=== PATIENT | male | born 1970 | race Hispanic/Latino ===

== ENCOUNTER 2019-02-22 13:31 | Inpatient (IN) | payer MEDICARE ==
[~2019-02-22 13:31] MED LIST: Iopamidol 370 76% 100 ML VIAL ONE
[2019-02-22 14:12] LABS: #Basophils 0.1 thou/uL (0.0-0.2); #Lymphocytes 1.9 thou/uL (1.20-3.40); #Monocytes 0.8 thou/uL (0.11-0.59); #Neutrophils 9.6 thou/uL (1.40-6.50); %Basophils 0.7 % (0.0-1.0); %Eosinophils 0.2 % (0.0-10.0); %Lymphocytes 15.5 % (21.0-51.0); %Monocytes 6.5 % (0.0-10.0); Hemoglobin 15.5 g/dL (14.0-18.0); Mean Corpuscular Hemoglobin 29.5 pg (27.0-31.0); Mean Corpuscular Volume 89.5 fL (78.0-98.0); Mean Platelet Volume 9.5 fL (7.4-10.4); Platelet Count 254 thou/uL (130-400); RBC Distribution Width 12.9 % (11.5-14.5); Red Blood Cell (RBC) Count 5.26 mill/uL (4.70-6.10); White Blood Cell (WBC) Count 12.5 thou/uL (4.8-10.8)
[2019-02-22 14:33] LABS: ALT (SGPT) 40 U/L (8-55); AST (SGOT) 25 U/L (5-34); Albumin 4.6 g/dL (3.5-5.0); Alkaline Phosphatase 52 U/L (40-110); Anion Gap 17 mmol/L (10-20); BUN (Urea Nitrogen) 17 mg/dL (8.9-20.6); Bilirubin, Total 0.8 mg/dL (0.2-1.2); Calc. Creatinine Clearance 0 mL/min (70-130); Calcium 9.7 mg/dL (7.8-10.44); Carbon Dioxide 24 mmol/L (22-29); Chloride 101 mmol/L (98-107); Estimated GFR-MDRD 89; Globulin 3.3 g/dL (2.4-3.5); Glucose 247 mg/dL (70-105); Potassium 4.4 mmol/L (3.5-5.1); Protein, Total 7.9 g/dL (6.0-8.3); Sodium 138 mmol/L (136-145)
[2019-02-22 14:48] LABS: Bacteria/HPF None Seen HPF (None Seen); Bilirubin Negative (Negative); Blood, Urine Negative (Negative); Clarity Clear (Clear); Glucose, Urine (Dipstick) Greater than 1000 mg/dL (Negative); Leukocyte Negative Leu/uL (Negative); Mucous/LPF 1+ LPF (<2+); Nitrite Negative (Negative); Protein, Urine (Dipstick) 50 mg/dL (Neg-Trace); RBC/HPF 0-3 HPF (0-3); Squamous Epithelial None Seen HPF (0-3); WBC/HPF 0-3 HPF (0-3)
--- NOTE | 2019-02-22 16:40 | CT ---
CT ABDOMEN AND PELVIS WITH CONTRAST: HISTORY: Abdominal pain. History of cholecystectomy. COMPARISON: Noncontrast CT study from 12/29/2015. FINDINGS: There are some atelectatic changes within the lung bases. Diffuse fatty change of the liver is noted. Some curvilinear calcification again noted along the ante rior margin of the liver, stable. There is a right lobe slightly oblong shaped liver lesion which ramírez ws what appears to be some peripheral enhancement. In retrospect it is present on the previous exam a nd not changed. It is incompletely characterized, possibly a hemangioma. It measures 2.8 x 5.5 cm. Th e spleen and pancreas regions are unremarkable. The gallbladder has been removed. The right and left adrenal glands and the right and left kidneys are normal in size. There is some mi ld dilatation of the more distal ileum with the mildly dilated small bowel loops extending into a lar ge right lateral abdominal wall hernia. There is some fecalization of some of the small bowel content s associated with the hernia itself and the exiting limb of the hernia which is the very distal ileum is nondilated. This would suggest there is some element of obstruction related to the hernia sac. Th is does appear to represent a change as compared to the 2016 study. There is no significant pelvic lymphadenopathy or mass. IMPRESSION: 1. Large right lateral wall abdominal hernia, containing small bowel, specifically the more distal il eum to the level of the terminal ileum. There is some mild dilatation of the distal ileum before it e nters this hernia loop. There is some fecalization of some of the small bowel contents within the her amparo itself and there is a definite transition to nondilated more distal ileum within the hernia itsel f and the terminal ileum exits the hernia sac as a completely nondilated structure. There is no herni ation of the colon. This would indicate there is some element of obstruction related to this hernia. 2. Diffuse fatty change of the liver. 3. Stable right lobe liver lesion, incompletely characterized, probably benign given lack of change s thad 2016. POS: [facility]
[2019-02-22] MEDS ORDERED: Morphine 4 MG/ML VIAL ONE (18:17)
[2019-02-22] MEDS ORDERED: Ondansetron PF 4 MG/2 ML Vial ONE (18:17)
[2019-02-22] MEDS ORDERED: Ondansetron ODT 4 MG TAB PO PRN (18:58)
[2019-02-22] MEDS ORDERED: Ondansetron PF 4 MG/2 ML Vial IVP PRN (18:58)
[2019-02-22] MEDS ORDERED: Dextrose 50% Abboject 50 ML SYRINGE SLOW IVP PRN (18:58)
[2019-02-22] MEDS ORDERED: Lorazepam 2 MG/ML VIAL SLOW IVP PRN (18:58)
[2019-02-22] MEDS ORDERED: hydrALAZINE 20 MG/ML VIAL SLOW IVP PRN (18:58)
[2019-02-22] MEDS ORDERED: Dextrose 5% in Water 1,000 ML IV PRN (18:58)
[2019-02-22] MEDS: Lactated Ringer's 1,000 ML IV SCH (21:29)
[2019-02-22] MEDS: Enoxaparin Sodium 40 MG/0.4 ML SYRINGE SC SCH (21:36)
[2019-02-22 22:01] VITALS: BMI 45.1
[2019-02-23] MEDS: Morphine 4 MG/ML VIAL SLOW IVP PRN ×3 (00:15→23:19)
[2019-02-23] MEDS: HumaLOG 300 UNITS/3 ML VIAL SC PRN ×3 (00:35→20:54)
--- NOTE | 2019-02-23 02:11 | HP ---
HISTORY OF PRESENT ILLNESS: Rashid West is a 48-year-old male, morbidly obese. In 2003, Dr. Leyva attempted laparoscopic cholecystectomy, but due to adhesions had to convert into an open procedure. Patient developed postoperative wound infection healing by secondary intention. Dr. Leyva saw him again in September 2003 at which time his wounds had healed. Patient presented in the emergency room in 2004 with incisional hernia at the medial aspect of his right subcostal incision. At that time, Dr. Leyva performed repair of ventral hernia with preperitoneal composite mesh. Patient states that he developed recurrence of his hernia, which he has had this for several years, now presents to the emergency room with abdominal pain and CAT scan revealed a large hernia sac mass with a smaller defect in his bladder, right subcostal incision. Patient has not had any nausea or vomiting. He has just had abdominal pain. This hernia mass contains lot of large amount of bowel including ileum. Abdominal exam is otherwise unremarkable. Patient is hemodynamically stable. ALLERGIES: NONE. SOCIAL HISTORY: Alcohol, none. Tobacco, none. MEDICATIONS: At home: 1. Tramadol. 2. Metformin 1000 b.i.d. 3. Actos 30 at bedtime. 4. Lisinopril 2.5 daily. 5. Levaquin daily. 6. Fenofibrate daily. 7. Voltaren 50 mg a day. 8. Atorvastatin 10 mg at p.m. 9. Aspirin 81 mg a day. PAST SURGICAL HISTORY: Open cholecystectomy with subsequent mesh repair in the past, prior to that he had orthopedic repair of his right femur. PAST MEDICAL HISTORY: Diabetes, hyperlipidemia. REVIEW OF SYSTEMS: Noncontributory. PHYSICAL EXAMINATION: VITAL SIGNS: Heart rate 87, blood pressure 130/72, respiratory rate 18. HEAD, EARS, EYES, NOSE, AND THROAT: Unremarkable. LUNGS: Clear to auscultation. CARDIAC: Regular rate and rhythm without murmur or gallop. ABDOMEN: Soft, obese, large hernia mass in right abdomen. It can be partially reduced. Patient is in no distress. EXTREMITIES: Chronic venous stasis changes. LABORATORY DATA: Basic metabolic profile normal. Glucose 247. Sodium 138, potassium 4.4, BUN 17, creatinine 0.9. Labs as noted above. White count 12, hemoglobin 15. ASSESSMENT AND PLAN: Large incisional hernia. This caused him pain. We will admit him to the hospital . Dr. Leyva will assume his care and repair his hernia tomorrow. Job ID: [id number]
[2019-02-23] MEDS: Lactated Ringer's 1,000 ML IV SCH ×3 (03:20→19:55)
[2019-02-23] MEDS: Sodium Chloride 0.9% (PF) 10 ML VIAL FS PRN (08:54)
[2019-02-23] MEDS: Pantoprazole 40 MG VIAL IVP SCH (08:54)
[2019-02-23] MEDS ORDERED: FLU VACC QS2019-20(6MOS UP)/PF 60 MCG/0.5 ML SYRINGE IM ONE (09:00)
[2019-02-23] MEDS ORDERED: CEFAZOLIN 2 GM in Premix Bag 1 BAG IVPB SCH (09:45)
[2019-02-23] MEDS ORDERED: Acetaminophen 1,000 MG in Premix Bag 1 BAG IVPB SCH (09:45)
[2019-02-23] MEDS ORDERED: Ketorolac Tromethamine 30 MG/ML VIAL IVP SCH (09:45)
--- NOTE | 2019-02-23 09:51 | PRG ---
DATE OF SERVICE: 02/23/2019 SUBJECTIVE: Mr. West is a 48-year-old morbidly obese diabetic, hypertensive male. He was admitted to the hospital yesterday by Dr. Holley in my absence. The patient has a history of an open cholecystectomy in 2003, followed by an open ventral hernia repair to the medial aspect of his right upper quadrant incision. He returned to the emergency room yesterday complaining of abdominal pain without nausea or vomiting. CT scan revealed a large incisional hernia involving the lateral aspect of his right upper quadrant incision. There was a substantial volume of bowel protruding through this. He notes that he feels better at this time and still has had no nausea or vomiting. PHYSICAL EXAMINATION: VITAL SIGNS: Temperature is 97.8, pulse 78, and blood pressure 111/70. LUNGS: clear to auscultation. ABDOMEN: Morbidly obese with extensive protrusion to the right lateral side of his abdomen. His obesity is such that it is difficult to tell if I am reducing anything or not. LABORATORY DATA: There are no new labs. ASSESSMENT: The patient with a large ventral incisional hernia. He believes this has been present for about 5 years (his last hernia repair was 14 years ago). PLAN: Plan is to return him to the operating room for open repair of the ventral hernia to the lateral aspect of his right upper quadrant incision. The large volume of extra abdominal material and his morbid obesity all make this substantially more difficult. I have discussed the operation in detail with the patient, who understands and agrees to proceed with surgery. Job ID: [id number]
[2019-02-23] MEDS ORDERED: Bupivacaine HCl 0.25%/Epi 0.0005/PF 10 ML VIAL FS ONE (10:12)
[2019-02-23] MEDS ORDERED: Fentanyl 100 MCG/2 ML VIAL ONE ×4 (11:33→17:07)
[2019-02-23] MEDS ORDERED: Midazolam HCl 2 mg/2 ml Vial ONE (11:34)
[2019-02-23] MEDS ORDERED: Famotidine/PF 20 mg/2ml Vial ONE (13:09)
[2019-02-23] MEDS ORDERED: SUGAMMADEX SODIUM 500 MG/5 ML VIAL ONE (13:09)
[2019-02-23] MEDS ORDERED: Lidocaine 1% PF 5 ML VIAL ONE (15:35)
[2019-02-23] MEDS ORDERED: Ondansetron PF 4 MG/2 ML Vial ONE (15:35)
[2019-02-23] MEDS ORDERED: Metoclopramide HCl 10 MG/2 ML VIAL ONE (15:35)
[2019-02-23] MEDS ORDERED: Rocuronium Bromide 10 MG/ML (10ML VIAL) ONE (15:35)
[2019-02-23] MEDS ORDERED: PROPOFOL 200 MG/20 ML VIAL ONE (15:35)
[2019-02-23] MEDS ORDERED: Ketorolac Tromethamine 30 MG/ML VIAL ONE (15:35)
[2019-02-23] MEDS ORDERED: HYDROmorphone 2 MG/ML VIAL ONE (16:23)
[2019-02-23] MEDS ORDERED: Non-Formulary Medication 1 EACH PO PRN (16:43)
[2019-02-23] MEDS ORDERED: HYDROmorphone 2 MG/ML VIAL SLOW IVP PRN (16:43)
[2019-02-23] MEDS ORDERED: Promethazine HCl 25 MG/ML VIAL IM/IV PRN (16:43)
[2019-02-23] MEDS ORDERED: Ondansetron HCl/PF 4 MG/2 ML Vial IVP PRN (16:43)
[2019-02-23] MEDS: Ketorolac Tromethamine 30 MG/ML VIAL IVP SCH ×2 (19:49→23:19)
[2019-02-23] MEDS: Enoxaparin Sodium 40 MG/0.4 ML SYRINGE SC SCH (20:54)
--- NOTE | 2019-02-23 22:45 | OP ---
DATE OF PROCEDURE: 02/23/2019 PREOPERATIVE DIAGNOSIS: Large incarcerated recurrent ventral incisional hernia. POSTOPERATIVE DIAGNOSIS: Large incarcerated recurrent ventral incisional hernia. PROCEDURE PERFORMED: Open repair of a large recurrent ventral incisional hernia in right upper abdomen with mesh using a 10 x 15 cm Ventralight mesh patch. ANESTHESIA: General endotracheal. INDICATIONS: The patient is a 48-year-old morbidly obese diabetic male. In 2003, I performed an open cholecystectomy secondary to extensive intraabdominal adhesions. In 2004, he had a hernia at the medial aspect of this right upper quadrant incision and this was repaired using an open approach. He believes that about 5 years ago, he developed a recurrent hernia involving the lateral aspect of this wound. The CT scan reveals a relatively small amount to the defect, but a huge volume of abdominal contents herniated through this with what appeared to be some degree of obstruction with a significant change in the caliber of the small bowel within the hernia. He presented to the emergency room yesterday complaining of abdominal pain. This is presumed to be the source. He was taken to the operating room at this time for repair. DESCRIPTION OF PROCEDURE: Informed consent was obtained. The patient was taken to the operating room, where general endotracheal anesthesia was obtained with the patient in supine position. He was rolled somewhat to his left side with a wedge placed behind his right back and hips. His abdomen was prepped with ChloraPrep and draped in sterile fashion. An oblique incision was created separate from his previous right upper quadrant incision over the area of the dominant herniated material. Dissection was carried through skin and subcutaneous tissue. I quickly encountered the hernia sac and carefully dissected around the hernia sac circumferentially. The dissection was carried down to the hernia defect. I then opened the hernia sac. There was a moderate amount of clear fluid within the hernia sac. I began the process of excising the hernia sac. Most of the hernia sac was quickly removed. There were some areas toward the medial aspect of the defect that were fairly densely adherent to the small bowel. I meticulously dissected the bowel away from the hernia sac and the abdominal wall. There was a segment where there was an obvious transition zone and what appeared to probably be some degree of stricturing secondary to the adhesions. There did not appear to be a persistent reason for the stricture and I believe that by lysing the adhesions that I was treating the stricture. Since I planned to repair this hernia with mesh, I did not want to resect the bowel unless it was absolutely necessary and I therefore decided against this. I had to open the defect a little further both medially and laterally. With this, I was eventually able to reduce the herniated segment of small bowel intraabdominal. There was at least 2 feet of small bowel herniated through the defect with the proximal bowel dilated and the distal small bowel decompressed. In order to reduce the contents, I had to ensure that there were minimal intraabdominal adhesions. I performed this dissection bluntly to clear the anterior abdominal wall circumferentially. It was specifically clear in the medial direction. Once I opened the defect further, I was able to quickly reduce contents. With his morbid obesity, there was always a struggle keeping the contents reduced as it was constantly pressure pushing outwards. I examined the defect and found it to be about 8 x 9 cm. When I looked at closure of the defect, I found that there was absolute inability in closing this in a transverse fashion and instead found that it was able to be closed in a vertical fashion. I then measured the defect in a vertical orientation. It was about 9 cm in length. I therefore chose a 10 x 15 cm piece of Ventralight mesh. On the back table, I placed 12 interrupted sutures of 0 Ethibond circumferentially around the mesh. Carefully measuring the distances from the fascial edge to the planned placement of the suture, I pulled all of the stay sutures through the muscular wall using a GraNee needle so as to create a snug fit of the mesh on the posterior aspect of the fascia. When these sutures were tied, the mesh was snug across the defect. There was no significant gap in the mesh, through which bowel would be able to herniate. I then closed the fascia using a series of interrupted sutures of #1 Prolene placed in a [id number] fashion. The wound was then. Irrigated with a L of saline. There had been no enterotomy and no substantial bleeding during the operation. A #19 round fluted drain was brought out inferiorly and placed within the wound. It was secured externally with 3-0 nylon suture. The incision was then closed using a running suture of 3-0 Vicryl to approximate the deep layers of the fatty tissue and skin naina to approximate the skin edges. The skin incision was about 17 cm long. Dry gauze external dressing was placed. With the large size of the incarcerated material, the extensive adhesions, the patient's morbid obesity and the recurrent nature of this, this all made for a difficult lengthy operation. The operation took in excess of 3 hours to complete. An abdominal binder was placed and he was taken to the recovery room in stable condition. About 30 mL of Marcaine was infiltrated within the skin and muscle circumferentially prior to closing. Job ID: [id number]
[2019-02-24] MEDS: HumaLOG 300 UNITS/3 ML VIAL SC PRN ×4 (01:02→15:29)
[2019-02-24] MEDS ORDERED: Piperacillin/Tazobactam 4.5 GM in Sodium Chloride 0.9% 100 ML IVPB SCH (02:00)
[2019-02-24 04:45] LABS: Hemoglobin A1c 10.6 % (4.0-6.0)
[2019-02-24 04:57] LABS: Anion Gap 15 mmol/L (10-20); BUN (Urea Nitrogen) 37 mg/dL (8.9-20.6); Calc. Creatinine Clearance 141 mL/min (70-130); Calcium 8.1 mg/dL (7.8-10.44); Carbon Dioxide 22 mmol/L (22-29); Chloride 104 mmol/L (98-107); Estimated GFR-MDRD 66; Glucose 200 mg/dL (70-105); Potassium 4.3 mmol/L (3.5-5.1); Sodium 137 mmol/L (136-145)
[2019-02-24] MEDS: Ketorolac Tromethamine 30 MG/ML VIAL IVP SCH ×4 (05:14→23:36)
[2019-02-24] MEDS: Morphine 2 MG/ML SYRINGE SLOW IVP PRN (05:15)
[2019-02-24 05:21] LABS: Band 15 % (5-11); Hemoglobin 14.6 g/dL (14.0-18.0); Lymphocytes 49 % (21-51); MDiff Complete? YES; Mean Corpuscular HGB CONC 30.7 g/dL (32.0-36.0); Mean Corpuscular Hemoglobin 27.7 pg (27.0-31.0); Mean Corpuscular Volume 90.3 fL (78.0-98.0); Mean Platelet Volume 9.7 fL (7.4-10.4); Monocytes 7 % (0-10); Neutrophil 29 % (42-75); Platelet Count 181 thou/uL (130-400); Platelet Morphology Comment Appears Adequate; RBC Distribution Width 13.1 % (11.5-14.5); RBC Morphology Normal; Red Blood Cell (RBC) Count 5.29 mill/uL (4.70-6.10); White Blood Cell (WBC) Count 7.6 thou/uL (4.8-10.8)
[2019-02-24] MEDS: Lactated Ringer's 1,000 ML IV SCH ×3 (05:21→18:26)
--- NOTE | 2019-02-24 06:42 | PDOC.GSPN ---
Surgery Progress Note: Subj - Subjective Narrative: Mr. West is a 48 y/o M who is POD 1 from an open repair of a large incarcerated recurrent ventral incisional hernia in the right upper abdomen with mesh. Overnight he reported suprapubic discomfort/pressure that he attributed to the duggan catheter. The nurse removed the duggan and scanned the bladder, which revealed 45 mL of urine. He reports that upon removal of the catheter his discomfort resolved. Prior to removal of the duggan, he had 375 mL out and he has voided minimally on several occasions overnight. He reports flatus and 3 episodes of diarrhea overnight, but denies nausea and vomiting. His pain is mild at rest, but elevates to an 8 when he gets up to walk to the restroom or ambulate, which he states has been 5-6 times since surgery. He received two doses of morphine overnight, which he says has controlled the pain. His DENISE drain put out 120 mL of serosanguinous fluid overnight. The nurse was concerned that he did not have any antibiotics ordered and had the hospitalist order a one time dose of Zosyn overnight. He is currently NPO with ice chips only and is receiving LR at 125 mL/hr. He is ambulating with moderate abdominal discomfort and is using incentive spirometry. Surgery Progress Note: Obj - Vital signs Vital signs: Vital Signs - Most Recent Temp Pulse Resp BP Pulse Ox 99 F 113 H 16 101/69 94 L 02/24/19 04:00 02/24/19 04:00 02/24/19 04:00 02/24/19 04:00 02/24/19 05:28 - Physical Exam General: no distress, moderate pain, obese Cardiovascular: regular rate and rhythm, no murmur Respiratory: clear to auscultation, normal respiratory effort Abdomen: soft, positive bowel sounds (normal active bowel sounds), appropriately tender, other (very obese abdomen) Wound: dressing clean,dry,intact, drainage (DENISE drain in the right lower abdomen) Surgery Progress Note: Results - Labs Result Diagrams: 02/24/19 04:20 02/24/19 04:20 Lab results: Laboratory Results - last 24 hr 02/24/19 02/24/19 02/24/19 04:20 04:20 04:20 WBC 7.6 RBC 5.29 Hgb 14.6 Hct 47.8 MCV 90.3 MCH 27.7 MCHC 30.7 L RDW 13.1 Plt Count 181 MPV 9.7 Neutrophils % (Manual) 29 L Band Neuts % (Manual) 15 H Lymphocytes % (Manual) 49 Monocytes % (Manual) 7 Plt Morphology Comment Appears Adequate RBC Morph Comment Normal Sodium 137 Potassium 4.3 Chloride 104 Carbon Dioxide 22 Anion Gap 15 BUN 37 H Creatinine 1.17 Estimated GFR (MDRD) 66 Glucose 200 H POC Glucose Hemoglobin A1c 10.6 H Calcium 8.1 Surgery Progress Note: A/P - Problem (1) Status post repair of recurrent ventral hernia Current Visit: Yes Code(s): Z98.890 - OTHER SPECIFIED POSTPROCEDURAL STATES; Z87.19 - PERSONAL HISTORY OF OTHER DISEASES OF THE DIGESTIVE SYSTEM Status: Acute Assessment and Plan: Mr. West is a 48 y/o male who is POD 1 from open repair of a large incarcerated recurrent ventral incisional hernia of the right upper abdomen with mesh. He is currently recovering well. His labs are within normal limits. We will continue to monitor his urine output and continue hydration with LR at 125 mL/hr. Will advance his diet to clear liquids this morning and continue advancing slowly as tolerated by the patient. His HgbA1c is 10.6, while he is here we will control his sugars with sliding scale insulin and recommend that he follow up outpatient with his PCP to achieve glycemic control for adequate postoperative healing. Will continue to monitor DENISE drainage and remove when drainage is less than 30 mL/24 hr. Patient's BP has been on the lower end of normal, we will minimize opioid use to prevent hypotension.
--- NOTE | 2019-02-24 07:39 | PDOC.HOSPP ---
- Subjective Encounter Date: 02/23/19 Encounter Time: 18:00 Subjective: post op in pacu, awake, no sob - Objective Vital Signs & Weight: Vital Signs (12 hours) Temp Pulse Resp BP Pulse Ox 02/24/19 07:22 98.4 F 107 H 18 117/79 94 L 02/24/19 05:28 94 L 02/24/19 04:00 99 F 113 H 16 101/69 94 L 02/24/19 01:10 98.9 F 113 H 16 112/70 94 L 02/23/19 23:49 99 F 120 H 20 101/56 L 93 L 02/23/19 20:55 98.4 F 107 H 18 94/63 94 L 02/23/19 20:00 95 Weight Weight 287 lb 14.4 oz I&O: 02/23/19 02/24/19 02/25/19 06:59 06:59 06:59 Intake Total 2130 Output Total 545 Balance 1585 Result Diagrams: 02/24/19 04:20 02/24/19 04:20 Additional Labs: Accuchecks 02/24/19 02/24/19 02/23/19 05:26 00:04 21:30 POC Glucose 205 H 206 H 244 H 02/23/19 18:55 POC Glucose 275 H Hospitalist ROS - Medication Medications: Active Medications Generic Name Dose Route Start Last Admin Trade Name Freq PRN Reason Stop Dose Admin Enoxaparin Sodium 40 mg 02/22/19 21:00 02/23/19 20:54 Lovenox SC 40 mg 2100 EDEL Administration Lactated Ringer's 1,000 mls @ 125 mls/hr 02/22/19 19:00 02/24/19 05:21 Lactated Ringer's IV 1,000 mls .Q8H EDEL Administration Insulin Human Lispro 0 units 02/22/19 18:58 02/24/19 05:23 Humalog SC 4 unit .MODERATE SLIDING SC PRN Administration Moderate Correctional Scale Ketorolac Tromethamine 30 mg 02/23/19 18:00 02/24/19 05:14 Toradol IVP 02/28/19 18:01 30 mg Q6HR EDEL Administration Morphine Sulfate 2 mg 02/22/19 18:58 02/24/19 05:15 Morphine SLOW IVP 2 mg Q2H PRN Administration Mild Pain (1-3) Morphine Sulfate 4 mg 02/22/19 18:58 02/23/19 23:19 Morphine SLOW IVP 4 mg Q2H PRN Administration Moderate Pain (4-6) Pantoprazole Sodium 40 mg 02/23/19 09:00 02/23/19 08:54 Protonix IVP 40 mg DAILY EDEL Administration Sodium Chloride 10 ml 02/22/19 18:58 02/23/19 23:19 Flush - Normal Saline IVF 10 ml PRN PRN Administration Saline Flush Sodium Chloride 10 ml 02/22/19 19:06 02/23/19 08:54 Normal Saline Pf FS 10 ml PRN PRN Administration RECONSTITUTION - Exam General Appearance: awake alert Eye: PERRL, anicteric sclera ENT: no oropharyngeal lesions, dry oral mucosa Neck: supple, no JVD Heart: RRR, no murmur Respiratory: no wheezes, no rales Gastrointestinal: soft Gastrointestinal - other findings: dressing over surgical site, drain+ Extremities: no cyanosis, no edema Neurological: cranial nerve grossly intact, no focal deficits Hosp A/P (1) Incarcerated hernia Code(s): K46.0 - UNSP ABDOMINAL HERNIA WITH OBSTRUCTION, WITHOUT GANGRENE Status: Acute (2) DM type 2 (diabetes mellitus, type 2) Status: Chronic Qualifiers: Diabetes mellitus mcfp insulin use: without computer terminal operator use Diabetes mellitus complication status: without complication Qualified Code(s): E11.9 - Type 2 diabetes mellitus without complications (3) Dyslipidemia Code(s): E78.5 - HYPERLIPIDEMIA, UNSPECIFIED Status: Chronic (4) HTN (hypertension) Code(s): I10 - ESSENTIAL (PRIMARY) HYPERTENSION Status: Chronic Qualifiers: Hypertension type: essential hypertension Qualified Code(s): I10 - Essential (primary) hypertension (5) Obesity Code(s): E66.9 - OBESITY, UNSPECIFIED Status: Chronic Qualifiers: Obesity classification: adult class 3 (BMI >= 40) Body mass index: BMI 45.0 -49.9 - Plan post op recovering well in pacu will be npo, on lactated ringers humalog sliding scale, protonix, morphine, toradol prn labs in am will f/u BP is well controlled now.
[2019-02-24] MEDS: Sodium Chloride 0.9% (PF) 10 ML VIAL FS PRN (09:26)
[2019-02-24] MEDS: Pantoprazole 40 MG VIAL IVP SCH (09:26)
--- NOTE | 2019-02-24 09:36 | PDOC.HOSPP ---
- Subjective Subjective: Doing ok. Has some pain, but says it is not bad. Flatus and BM. - Objective Vital Signs & Weight: Vital Signs (12 hours) Temp Pulse Resp BP Pulse Ox 02/24/19 07:22 98.4 F 107 H 18 117/79 94 L 02/24/19 05:28 94 L 02/24/19 04:00 99 F 113 H 16 101/69 94 L 02/24/19 01:10 98.9 F 113 H 16 112/70 94 L 02/23/19 23:49 99 F 120 H 20 101/56 L 93 L Weight Weight 287 lb 14.4 oz I&O: 02/23/19 02/24/19 02/25/19 06:59 06:59 06:59 Intake Total 2130 Output Total 545 Balance 1585 Result Diagrams: 02/24/19 04:20 02/24/19 04:20 Additional Labs: Accuchecks 02/24/19 02/24/19 02/23/19 05:26 00:04 21:30 POC Glucose 205 H 206 H 244 H 02/23/19 18:55 POC Glucose 275 H Hospitalist ROS - Medication Medications: Active Medications Generic Name Dose Route Start Last Admin Trade Name Freq PRN Reason Stop Dose Admin Enoxaparin Sodium 40 mg 02/22/19 21:00 02/23/19 20:54 Lovenox SC 40 mg 2100 EDEL Administration Lactated Ringer's 1,000 mls @ 125 mls/hr 02/22/19 19:00 02/24/19 05:21 Lactated Ringer's IV 1,000 mls .Q8H EDEL Administration Insulin Human Lispro 0 units 02/22/19 18:58 02/24/19 05:23 Humalog SC 4 unit .MODERATE SLIDING SC PRN Administration Moderate Correctional Scale Ketorolac Tromethamine 30 mg 02/23/19 18:00 02/24/19 05:14 Toradol IVP 02/28/19 18:01 30 mg Q6HR EDEL Administration Morphine Sulfate 2 mg 02/22/19 18:58 02/24/19 05:15 Morphine SLOW IVP 2 mg Q2H PRN Administration Mild Pain (1-3) Morphine Sulfate 4 mg 02/22/19 18:58 02/23/19 23:19 Morphine SLOW IVP 4 mg Q2H PRN Administration Moderate Pain (4-6) Pantoprazole Sodium 40 mg 02/23/19 09:00 02/24/19 09:26 Protonix IVP 40 mg DAILY EDEL Administration Sodium Chloride 10 ml 02/22/19 18:58 02/23/19 23:19 Flush - Normal Saline IVF 10 ml PRN PRN Administration Saline Flush Sodium Chloride 10 ml 02/22/19 19:06 02/24/19 09:26 Normal Saline Pf FS 10 ml PRN PRN Administration RECONSTITUTION - Exam General Appearance: NAD, awake alert Heart: RRR, no murmur, no gallops, no rubs, normal peripheral pulses Respiratory: CTAB, no wheezes, no rales, no ronchi, normal chest expansion, no tachypnea, normal percussion Gastrointestinal: soft, non-distended, normal bowel sounds, tender to palpation Skin: normal turgor Neurological: no focal deficits Musculoskeletal: normal tone Psychiatric: normal affect, normal behavior, A&O x 3 Hosp A/P (1) Incarcerated hernia Code(s): K46.0 - UNSP ABDOMINAL HERNIA WITH OBSTRUCTION, WITHOUT GANGRENE Status: Acute (2) Status post repair of recurrent ventral hernia Code(s): Z98.890 - OTHER SPECIFIED POSTPROCEDURAL STATES; Z87.19 - PERSONAL HISTORY OF OTHER DISEASES OF THE DIGESTIVE SYSTEM Status: Acute (3) DM type 2 (diabetes mellitus, type 2) Status: Chronic Qualifiers: Diabetes mellitus termite control service representative insulin use: without senior care use Diabetes mellitus complication status: without complication Qualified Code(s): E11.9 - Type 2 diabetes mellitus without complications (4) Dyslipidemia Code(s): E78.5 - HYPERLIPIDEMIA, UNSPECIFIED Status: Chronic (5) HTN (hypertension) Code(s): I10 - ESSENTIAL (PRIMARY) HYPERTENSION Status: Chronic Qualifiers: Hypertension type: essential hypertension Qualified Code(s): I10 - Essential (primary) hypertension (6) Obesity Code(s): E66.9 - OBESITY, UNSPECIFIED Status: Chronic Qualifiers: Obesity classification: adult class 3 (BMI >= 40) Body mass index: BMI 45.0 -49.9 (7) Tachycardia Code(s): R00.0 - TACHYCARDIA, UNSPECIFIED Status: Acute - Plan Doing fairly well. Good bowel function. His blood sugars have not been well controlled prior to admission. He is aware of that. He is also aware that his A1c is not good. Prefer slightly better glucose control, but looks like it is coming down a little. If it does not continue to improve today, consider increasing the SSI. He should go back on po's as soon as he is reliably taking po's. Still tachycardic and labs suggest he is a little pre-renal. Getting LR at 125. has some 3rd spacing. May consider a NS bolus if he does not improve.
[2019-02-24] MEDS: Enoxaparin Sodium 40 MG/0.4 ML SYRINGE SC SCH (21:21)
[2019-02-25] MEDS: Morphine 2 MG/ML SYRINGE SLOW IVP PRN (00:14)
[2019-02-25] MEDS: Lactated Ringer's 1,000 ML IV SCH ×3 (01:23→17:14)
[2019-02-25] MEDS: Ketorolac Tromethamine 30 MG/ML VIAL IVP SCH ×4 (05:28→23:39)
[2019-02-25] MEDS: Pantoprazole 40 MG VIAL IVP SCH (09:19)
[2019-02-25] MEDS ORDERED: HYDROcodone/Acetaminophen 7.5/325 mg Tablet PO PRN ×2 (13:31)
--- NOTE | 2019-02-25 14:30 | PDOC.HOSPP ---
- Subjective Subjective: Doing very well. Starting po's today. Having bm's. No pain. - Objective Vital Signs & Weight: Vital Signs (12 hours) Temp Pulse Resp BP Pulse Ox 02/25/19 11:26 98.2 F 90 20 139/76 95 02/25/19 07:34 98.1 F 87 18 126/71 95 02/25/19 04:23 98.5 F 82 16 121/77 95 Weight Weight 287 lb 14.4 oz I&O: 02/24/19 02/25/19 02/26/19 06:59 06:59 06:59 Intake Total 2130 1375 1500 Output Total 545 90 200 Balance 1585 1285 1300 Result Diagrams: 02/24/19 04:20 02/24/19 04:20 Additional Labs: Accuchecks 02/25/19 02/25/19 02/25/19 11:29 05:14 00:10 POC Glucose 156 H 146 H 152 H 02/24/19 15:12 POC Glucose 182 H Hospitalist ROS - Medication Medications: Active Medications Generic Name Dose Route Start Last Admin Trade Name Freq PRN Reason Stop Dose Admin Enoxaparin Sodium 40 mg 02/22/19 21:00 02/24/19 21:21 Lovenox SC 40 mg 2100 EDEL Administration Lactated Ringer's 1,000 mls @ 125 mls/hr 02/22/19 19:00 02/25/19 09:19 Lactated Ringer's IV 1,000 mls .Q8H EDEL Administration Insulin Human Lispro 0 units 02/22/19 18:58 02/24/19 15:29 Humalog SC 2 unit .MODERATE SLIDING SC PRN Administration Moderate Correctional Scale Ketorolac Tromethamine 30 mg 02/23/19 18:00 02/25/19 12:23 Toradol IVP 02/28/19 18:01 30 mg Q6HR EDEL Administration Morphine Sulfate 2 mg 02/22/19 18:58 02/25/19 00:14 Morphine SLOW IVP 2 mg Q2H PRN Administration Mild Pain (1-3) Sodium Chloride 10 ml 02/22/19 18:58 02/23/19 23:19 Flush - Normal Saline IVF 10 ml PRN PRN Administration Saline Flush - Exam General Appearance: NAD, awake alert General - other findings: obese. Neck: supple, symmetric, no JVD, no thyromegaly, no lymphadenopathy, no carotid bruit Heart: RRR, no murmur, no gallops, no rubs, normal peripheral pulses Respiratory: CTAB, no wheezes, no rales, no ronchi, normal chest expansion, no tachypnea, normal percussion Gastrointestinal: soft, non-distended, normal bowel sounds, no palpable masses, no hepatomegaly, no splenomegaly, no bruit Extremities: no cyanosis, no clubbing, no edema Neurological: cranial nerve grossly intact, normal sensation to touch, no weakness, no focal deficits, no new deficit Musculoskeletal: normal tone, normal strength, no muscle wasting Psychiatric: normal affect, normal behavior, A&O x 3 Hosp A/P (1) Incarcerated hernia Code(s): K46.0 - UNSP ABDOMINAL HERNIA WITH OBSTRUCTION, WITHOUT GANGRENE Status: Acute (2) Status post repair of recurrent ventral hernia Code(s): Z98.890 - OTHER SPECIFIED POSTPROCEDURAL STATES; Z87.19 - PERSONAL HISTORY OF OTHER DISEASES OF THE DIGESTIVE SYSTEM Status: Acute (3) DM type 2 (diabetes mellitus, type 2) Status: Chronic Qualifiers: Diabetes mellitus intermediate accountant insulin use: without intermediate accountant use Diabetes mellitus complication status: without complication Qualified Code(s): E11.9 - Type 2 diabetes mellitus without complications (4) Dyslipidemia Code(s): E78.5 - HYPERLIPIDEMIA, UNSPECIFIED Status: Chronic (5) HTN (hypertension) Code(s): I10 - ESSENTIAL (PRIMARY) HYPERTENSION Status: Chronic Qualifiers: Hypertension type: essential hypertension Qualified Code(s): I10 - Essential (primary) hypertension (6) Obesity Code(s): E66.9 - OBESITY, UNSPECIFIED Status: Chronic Qualifiers: Obesity classification: adult class 3 (BMI >= 40) Body mass index: BMI 45.0 -49.9 (7) Tachycardia Code(s): R00.0 - TACHYCARDIA, UNSPECIFIED Status: Acute - Plan Blood sugars and blood pressure look good. No change in meds. Will watch as he initiates diet. He seems to have good insight to what he needs to do to get his weight down and BP and BG under control.
[2019-02-25] MEDS: HumaLOG 300 UNITS/3 ML VIAL SC PRN ×2 (17:23→22:20)
[2019-02-25] MEDS: Famotidine 20 MG TAB PO SCH (20:30)
[2019-02-25] MEDS: Enoxaparin Sodium 40 MG/0.4 ML SYRINGE SC SCH (20:30)
[2019-02-26 04:53] LABS: #Basophils 0.1 thou/uL (0.0-0.2); #Eosinphils 0.2 thou/uL (0.0-0.7); #Lymphocytes 2.2 thou/uL (1.20-3.40); #Monocytes 0.6 thou/uL (0.11-0.59); %Basophils 0.8 % (0.0-1.0); %Eosinophils 2.3 % (0.0-10.0); %Lymphocytes 27.9 % (21.0-51.0); %Monocytes 7.4 % (0.0-10.0); %Neutrophils 61.7 % (42.0-75.0); Hemoglobin 10.4 g/dL (14.0-18.0); Mean Corpuscular HGB CONC 32.8 g/dL (32.0-36.0); Mean Corpuscular Hemoglobin 29.5 pg (27.0-31.0); Mean Corpuscular Volume 89.9 fL (78.0-98.0); Platelet Count 205 thou/uL (130-400); RBC Distribution Width 12.3 % (11.5-14.5); Red Blood Cell (RBC) Count 3.54 mill/uL (4.70-6.10); White Blood Cell (WBC) Count 8.1 thou/uL (4.8-10.8)
[2019-02-26] MEDS: Lactated Ringer's 1,000 ML IV SCH ×2 (05:21→12:20)
[2019-02-26] MEDS: Ketorolac Tromethamine 30 MG/ML VIAL IVP SCH ×2 (05:22→12:21)
[2019-02-26] MEDS ORDERED: Lactated Ringer's 1,000 ML IV SCH (07:30)
[2019-02-26] MEDS: Famotidine 20 MG TAB PO SCH (08:16)
[2019-02-26] MEDS: HumaLOG 300 UNITS/3 ML VIAL SC PRN (12:21)
[2019-02-26 15:36] VITALS: BP 157/82; TEMP 97.6
== END 2019-02-26 16:30 | disposition home or self-care (01) | DRG 336 ==
LOC: ERS 13:31 → SURG A 21:04
PROVIDERS: ADMIT Specialist; ATTEND Specialist
PROC: 0WUF0JZ Supplement Abdominal Wall with Synthetic Substitute, Open Approach (ICD-10-PCS; principal; 2019-02-23)
PROC: 0DNW0ZZ Release Peritoneum, Open Approach (ICD-10-PCS; 2019-02-23)
PROC: 3E02340 Introduction of Influenza Vaccine into Muscle, Percutaneous Approach (ICD-10-PCS; 2019-02-23)
DX: K43.0 Incisional hernia with obstruction, without gangrene (principal); Z68.42 Body mass index [BMI] 45.0-49.9, adult; E66.01 Morbid (severe) obesity due to excess calories; K66.0 Peritoneal adhesions (postprocedural) (postinfection); E78.5 Hyperlipidemia, unspecified; E11.9 Type 2 diabetes mellitus without complications; I10 Essential (primary) hypertension; R00.0 Tachycardia, unspecified; Z90.49 Acquired absence of other specified parts of digestive tract; Z79.899 Other long term (current) drug therapy; Z79.82 Long term (current) use of aspirin; Z79.84 Long term (current) use of oral hypoglycemic drugs; Z23 Encounter for immunization
CPT/HCPCS: 36415; 36416; 74177; 80048; 80053; 81003; 81015; 83036; 83690; 85025; 90471; 90686; 96374; 96375; C9113; G0008; J0131; J0690; J1170; J1650; J1885; J2001; J2250; J2270; J2405; J2543; J2704; J2765; J3010; J3490; Q9967; S0028

== ENCOUNTER 2019-04-13 15:07 | Emergency (ER) | payer MEDICARE ==
[2019-04-13 15:57] LABS: #Monocytes 0.8 thou/uL (0.11-0.59); %Basophils 0.3 % (0.0-1.0); %Eosinophils 1.1 % (0.0-10.0); %Lymphocytes 15.7 % (21.0-51.0); %Monocytes 6.3 % (0.0-10.0); %Neutrophils 76.6 % (42.0-75.0); Hemoglobin 12.3 g/dL (14.0-18.0); Mean Corpuscular HGB CONC 31.9 g/dL (32.0-36.0); Mean Corpuscular Hemoglobin 27.3 pg (27.0-31.0); Mean Corpuscular Volume 85.7 fL (78.0-98.0); Mean Platelet Volume 8.5 fL (7.4-10.4); Platelet Count 348 thou/uL (130-400); RBC Distribution Width 12.9 % (11.5-14.5); Red Blood Cell (RBC) Count 4.49 mill/uL (4.70-6.10)
[2019-04-13 15:58] LABS: #Eosinphils 0.1 thou/uL (0.0-0.7)
[2019-04-13 16:18] LABS: ALT (SGPT) 12 U/L (8-55); AST (SGOT) 14 U/L (5-34); Albumin 4.1 g/dL (3.5-5.0); Alkaline Phosphatase 54 U/L (40-110); Anion Gap 15 mmol/L (10-20); BUN (Urea Nitrogen) 17 mg/dL (8.9-20.6); Bilirubin, Total 0.5 mg/dL (0.2-1.2); Calc. Creatinine Clearance 0 mL/min (70-130); Calcium 9.8 mg/dL (7.8-10.44); Carbon Dioxide 25 mmol/L (22-29); Chloride 99 mmol/L (98-107); Estimated GFR-MDRD 82; Globulin 3.8 g/dL (2.4-3.5); Glucose 313 mg/dL (70-105); Potassium 4.7 mmol/L (3.5-5.1); Protein, Total 7.9 g/dL (6.0-8.3); Sodium 134 mmol/L (136-145)
[2019-04-13] MEDS ORDERED: Cephalexin 250 MG CAP ONE (18:17)
[2019-04-13] MEDS ORDERED: Lidocaine 1% (PF) 30 ML VIAL ONE (18:17)
[2019-04-13] MEDS ORDERED: cefTRIAXone\\ROCEPHIN 1 GM VIAL ONE (18:17)
[2019-04-13 18:59] LABS: Bacteria/HPF None Seen HPF (None Seen); Bilirubin Negative (Negative); Blood, Urine Negative (Negative); Clarity Clear (Clear); Glucose, Urine (Dipstick) Greater than 1000 mg/dL (Negative); Leukocyte Negative Leu/uL (Negative); Nitrite Negative (Negative); Protein, Urine (Dipstick) 30 mg/dL (Neg-Trace); RBC/HPF 0-3 HPF (0-3); Squamous Epithelial None Seen HPF (0-3); WBC/HPF 0-3 HPF (0-3)
== END 2019-04-13 19:05 | disposition home or self-care (01) ==
LOC: ERS 15:07
DX: L03.311 Cellulitis of abdominal wall (principal); E11.9 Type 2 diabetes mellitus without complications; E78.5 Hyperlipidemia, unspecified; I10 Essential (primary) hypertension; Z79.82 Long term (current) use of aspirin; Z79.899 Other long term (current) drug therapy; Z79.84 Long term (current) use of oral hypoglycemic drugs; Z79.891 Long term (current) use of opiate analgesic
CPT/HCPCS: 36415; 80053; 81003; 81015; 85025; 96372; 99284; J0696; J2001

== ENCOUNTER 2019-04-22 10:41 | Emergency (ER) | payer MEDICARE, OTHER, SELFPAY ==
[~2019-04-22 10:41] MED LIST changes: -Iopamidol 370 76% 100 ML VIAL ONE; +Iopamidol 370 76% 50 ML VIAL FS ONE; +Iopamidol-370 76% 500 ML 1 ML ONE
[2019-04-22 11:19] LABS: #Basophils 0.1 thou/uL (0.0-0.2); #Eosinphils 0.1 thou/uL (0.0-0.7); #Lymphocytes 3.3 thou/uL (1.20-3.40); #Monocytes 0.4 thou/uL (0.11-0.59); #Neutrophils 5.5 thou/uL (1.40-6.50); %Basophils 0.6 % (0.0-1.0); %Eosinophils 1.6 % (0.0-10.0); %Lymphocytes 34.7 % (21.0-51.0); %Monocytes 4.7 % (0.0-10.0); %Neutrophils 58.4 % (42.0-75.0); Hemoglobin 11.5 g/dL (14.0-18.0); Mean Corpuscular HGB CONC 31.6 g/dL (32.0-36.0); Mean Corpuscular Hemoglobin 26.7 pg (27.0-31.0); Mean Corpuscular Volume 84.6 fL (78.0-98.0); Mean Platelet Volume 7.8 fL (7.4-10.4); Platelet Count 558 thou/uL (130-400); RBC Distribution Width 13.5 % (11.5-14.5); Red Blood Cell (RBC) Count 4.31 mill/uL (4.70-6.10); White Blood Cell (WBC) Count 9.4 thou/uL (4.8-10.8)
[2019-04-22 11:29] LABS: ALT (SGPT) 16 U/L (8-55); AST (SGOT) 22 U/L (5-34); Albumin 3.7 g/dL (3.5-5.0); Alkaline Phosphatase 48 U/L (40-110); Anion Gap 14 mmol/L (10-20); BUN (Urea Nitrogen) 19 mg/dL (8.9-20.6); Bilirubin, Total 0.2 mg/dL (0.2-1.2); Calc. Creatinine Clearance 0 mL/min (70-130); Calcium 9.5 mg/dL (7.8-10.44); Carbon Dioxide 26 mmol/L (22-29); Chloride 101 mmol/L (98-107); Estimated GFR-MDRD 79; Globulin 3.8 g/dL (2.4-3.5); Glucose 169 mg/dL (70-105); Potassium 4.7 mmol/L (3.5-5.1); Protein, Total 7.5 g/dL (6.0-8.3); Sodium 136 mmol/L (136-145)
--- NOTE | 2019-04-22 14:31 | CT ---
CT Abdomen Pelvis W Con: 04/22/2019 1:10 PM CLINICAL INFORMATION: Abdominal wall cellulitis and abscess. Hernia repair on 02/24/2019 COMPARISON: 02/22/2019 TECHNIQUE: Multiple contiguous axial images were obtained and a CT of the abdomen and pelvis with IV contrast. Oral contrast was administered. Coronal and sagittal reformats were performed. FINDINGS: Lower Chest: within normal limits. Abdomen: Liver: Diffuse fatty infiltration. Bile Ducts: Normal caliber. Gallbladder: Removed Pancreas: within normal limits. Spleen: within normal limits. Adrenals: within normal limits. Kidneys: within normal limits. Pelvis: Reproductive Organs: No pelvic masses. Ureters: within normal limits. Bladder: within normal limits. Peritoneum: No ascites or free air, no fluid collection. Bowel: Normal caliber. Mesentery and Retroperitoneum: No enlarged mesenteric or retroperitoneal lymph nodes. Vessels: Normal. Abdominal Wall: There is a fluid collection containing air in the right abdominal wall at the site of previous hernia repair. This measures 14.3 x 5.3 x 8.1 cm in size. This is only superficial and does not extend deep to the fascia. Bones: Within normal limits IMPRESSION: Wound infection/abscess
[2019-04-22] MEDS ORDERED: Lidocaine 1% w/Epinephrine 1:100K 20 ML VIAL ONE (14:51)
[2019-04-22] MEDS ORDERED: Cefepime 2 GM VIAL ONE (16:00)
--- NOTE | 2019-04-22 16:11 | HP ---
HISTORY OF PRESENT ILLNESS: Rashid West is a 48-year-old male patient, who has had undergone a cholecystectomy in the past, has been seen by Dr. Leyva in the past and more recently on February 23, 2019, underwent open repair of a large recurrent ventral incisional hernia in the right upper abdomen with mesh, 10 x 15 cm Ventralight patch. He had adhesiolysis of the small bowel, adherent to the hernia sac. The hernia sac was resected. Herniated bowel segments were reduced through the defect, reducing approximately 2 feet of small bowel length. The defect was appreciated to be 8 x 9 cm and it was able to be closed in a vertical fashion resulting in a 9 cm closure. A 10 x 15 cm segment of Ventralight mesh and using 0 Ethibond, suture was placed circumferentially and a GraNee needle, the mesh was placed intraabdominal to reinforce the closures. Fascia was closed with #1 Prolene sutures [id number]. The wound was irrigated and closed. The skin incision was 17 cm long, 3-hour operation was completed. The patient apparently saw Dr. Leyva in the office a few weeks ago and was doing well. He had a planned followup in May. He was seen in the emergency room 04/[address] Hoyt and there was some mild redness around the incision. He was treated with Keflex, which he has 6 pills left to complete. He reports today drainage from the wound. A CAT scan was obtained to evaluate this, revealing subcutaneous tissue abscess, 14 x 5 x 8 cm, not extending to the deep fascia. Dr. Trujillo evaluated this, asked me to see him. At the bedside, I was able to appreciate a small opening where he had some clear to purulent drainage. His white count was 9 and hemoglobin 11.5. He was afebrile. At the bedside, I drained this and cultured it and placed a Kerlix roll. ASSESSMENT AND PLAN: Abdominal wall abscess. There does not appear to be involvement of the mesh, but there is concern. I have advised him to complete his Keflex. I have given him 1 g of vancomycin, 2 g of cefepime in the emergency room. He was sent home with 10 days of Cipro and Bactrim DS p.o. that he is to complete along with completing his Keflex. We will await the cultures. He will see me in the office tomorrow morning at 0900 and we will change his dressings, make arrangements with Wound Care for a wound VAC. Then, follow up next week with culture results. We will follow this clinically. Job ID: [id number]
--- NOTE | 2019-04-23 11:41 | OP ---
DATE OF PROCEDURE: 04/22/2019 PREOPERATIVE DIAGNOSIS: Right subcostal abdominal wound abscess, status post closure of a complex incisional hernia in a morbidly obese patient with reinforcement with mesh intraabdominal. PROCEDURES PERFORMED: Incision and drainage of skin and subcutaneous abscess, large, at bedside. ANESTHESIA: 1% Xylocaine with epinephrine. DESCRIPTION OF PROCEDURE: With the patient at bedside, the patient had a pinpoint opening with purulent drainage. There was induration laterally. Local anesthetic was infiltrated in the skin and subcutaneous tissue, and a 10-blade was used to incise and drain this, 8 cm opening made. Purulent material, fibrinous material evacuated. This was irrigated with saline solution. A Kerlix roll, gauze dressing applied. The patient tolerated the procedure well. Culture submitted. Job ID: [id number]
== END 2019-04-22 17:15 | disposition home or self-care (01) ==
LOC: ERS 10:41
DX: L02.211 Cutaneous abscess of abdominal wall (principal); E11.9 Type 2 diabetes mellitus without complications; E78.5 Hyperlipidemia, unspecified; I10 Essential (primary) hypertension; Z79.899 Other long term (current) drug therapy
CPT/HCPCS: 36415; 74177; 80053; 85025; 87070; 87077; 87186; 87205; 96365; 96367; J0692; J3370; Q9967

== ENCOUNTER 2019-08-23 12:58 | Emergency (ER) | payer MEDICARE ==
[2019-08-23 13:29] LABS: Bilirubin Negative (Negative); Blood, Urine 3+ (Negative); Clarity Turbid (Clear); Glucose, Urine (Dipstick) Greater than 1000 mg/dL (Negative); Leukocyte 250 Leu/uL (Negative); Mucous/LPF 2+ LPF (<2+); Nitrite Negative (Negative); Protein, Urine (Dipstick) 50 mg/dL (Neg-Trace); RBC/HPF Greater than 50 HPF (0-3); Renal Epithelial 0-3 HPF (None Seen); Squamous Epithelial 0-3 HPF (0-3); Urobilinogen Normal mg/dL (Less than 2); WBC/HPF Greater than 50 HPF (0-3)
[2019-08-23 13:35] LABS: Bacteria/HPF 1+ HPF (None Seen)
[2019-08-23] MEDS ORDERED: Lidocaine 1% PF 5 ML VIAL ONE (14:42)
[2019-08-23] MEDS ORDERED: cefTRIAXone\\ROCEPHIN 1 GM VIAL ONE (14:42)
== END 2019-08-23 15:00 | disposition home or self-care (01) ==
LOC: ERS 12:58
DX: N39.0 Urinary tract infection, site not specified (principal); E11.9 Type 2 diabetes mellitus without complications; I10 Essential (primary) hypertension; E78.5 Hyperlipidemia, unspecified; Z79.891 Long term (current) use of opiate analgesic; Z79.84 Long term (current) use of oral hypoglycemic drugs; Z79.899 Other long term (current) drug therapy; Z79.82 Long term (current) use of aspirin
CPT/HCPCS: 81003; 81015; 87077; 87086; 87186; 96372; 99283; J0696; J2001

== ENCOUNTER 2021-01-06 15:32 | Emergency (ER) | payer MEDICARE ==
[2021-01-07 09:56] LABS: ALT (SGPT) 37 U/L (8-55); AST (SGOT) 35 U/L (5-34); Albumin 4.7 g/dL (3.5-5.0); Alkaline Phosphatase 49 U/L (40-110); Anion Gap 19 mmol/L (10-20); BUN (Urea Nitrogen) 24 mg/dL (8.4-25.7); Bilirubin, Total 0.4 mg/dL (0.2-1.2); Calc. Creatinine Clearance 0 mL/min (70-130); Calcium 10.3 mg/dL (7.8-10.44); Carbon Dioxide 23 mmol/L (22-29); Chloride 104 mmol/L (98-107); Globulin 3.1 g/dL (2.4-3.5); Glucose 115 mg/dL (70-105); Potassium 5.1 mmol/L (3.5-5.1); Protein, Total 7.8 g/dL (6.0-8.3); Sodium 141 mmol/L (136-145)
[2021-01-07 10:57] LABS: Hemoglobin 14.9 g/dL (14.0-18.0); Red Blood Cell (RBC) Count 5.06 mill/uL (4.70-6.10); White Blood Cell (WBC) Count 13.5 thou/uL (4.8-10.8)
[2021-01-07 10:58] LABS: Lymphocytes 26 % (21-51); MDiff Complete? YES; Manual Diff?? YES; Mean Corpuscular HGB CONC 32.3 g/dL (32.0-36.0); Mean Corpuscular Hemoglobin 29.4 pg (27.0-31.0); Mean Corpuscular Volume 90.9 fL (78.0-98.0); Mean Platelet Volume 10.3 fL (7.4-10.4); Neutrophil 69 % (42-75); Platelet Count 243 thou/uL (130-400); RBC Distribution Width 13.3 % (11.5-14.5)
[2021-01-07 10:59] LABS: Monocytes 5 % (0-10); Platelet Morphology Comment Appears Adequate; RBC Morphology Normal
== END 2021-01-07 02:33 | disposition left against medical advice (07) ==
LOC: ERS 15:32
DX: Z53.21 Procedure and treatment not carried out due to patient leaving prior to being seen by health care provider (principal)
CPT/HCPCS: 86850; 86900; 86901

== ENCOUNTER 2021-01-07 07:25 | Emergency (ER) | payer MEDICARE ==
[2021-01-07] MEDS ORDERED: Pantoprazole 40 MG VIAL ONE (08:22)
[2021-01-07] MEDS ORDERED: Ondansetron PF 4 MG/2 ML Vial ONE (08:22)
[2021-01-07] MEDS ORDERED: Morphine 4 MG/ML VIAL ONE (08:22)
[2021-01-07 08:47] LABS: #Basophils 0.1 thou/uL (0.0-0.2); #Lymphocytes 2.3 thou/uL (1.20-3.40); #Monocytes 0.7 thou/uL (0.11-0.59); #Neutrophils 8.6 thou/uL (1.40-6.50); %Basophils 0.7 % (0.0-1.0); %Eosinophils 0.4 % (0.0-10.0); %Lymphocytes 19.7 % (21.0-51.0); %Monocytes 5.5 % (0.0-10.0); %Neutrophils 73.7 % (42.0-75.0); Hemoglobin 14.9 g/dL (14.0-18.0); Mean Corpuscular HGB CONC 32.4 g/dL (32.0-36.0); Mean Corpuscular Hemoglobin 29.1 pg (27.0-31.0); Mean Corpuscular Volume 89.9 fL (78.0-98.0); Platelet Count 229 thou/uL (130-400); RBC Distribution Width 13.2 % (11.5-14.5); Red Blood Cell (RBC) Count 5.11 mill/uL (4.70-6.10); White Blood Cell (WBC) Count 11.7 thou/uL (4.8-10.8)
[2021-01-07 08:48] LABS: ALT (SGPT) 40 U/L (8-55); AST (SGOT) 39 U/L (5-34); Albumin 4.4 g/dL (3.5-5.0); Alkaline Phosphatase 43 U/L (40-110); Anion Gap 15 mmol/L (10-20); BUN (Urea Nitrogen) 20 mg/dL (8.4-25.7); Bilirubin, Total 0.7 mg/dL (0.2-1.2); Calc. Creatinine Clearance 0 mL/min (70-130); Calcium 9.6 mg/dL (7.8-10.44); Carbon Dioxide 23 mmol/L (22-29); Chloride 104 mmol/L (98-107); Globulin 2.9 g/dL (2.4-3.5); Glucose 203 mg/dL (70-105); Lipase 38 U/L (8-78); Potassium 4.4 mmol/L (3.5-5.1); Protein, Total 7.3 g/dL (6.0-8.3); Sodium 138 mmol/L (136-145)
[2021-01-07] MEDS ORDERED: Iopamidol-370 76% 500 ML 1 ML ONE (15:19)
== END 2021-01-07 11:40 | disposition home or self-care (01) ==
LOC: ERS 07:25
DX: K92.1 Melena (principal); Z79.899 Other long term (current) drug therapy; Z79.82 Long term (current) use of aspirin; Z79.84 Long term (current) use of oral hypoglycemic drugs; E11.9 Type 2 diabetes mellitus without complications; E78.00 Pure hypercholesterolemia, unspecified
CPT/HCPCS: 36415; 74177; 80053; 82274; 83690; 85025; 96374; 96375; C9113; J2270; J2405; Q9967

== ENCOUNTER 2021-06-03 06:12 | Emergency (ER) | payer MEDICARE ==
[2021-06-03] MEDS ORDERED: Cyclobenzaprine 10 MG TAB ONE (07:18)
[2021-06-03] MEDS ORDERED: Ibuprofen 200 MG TAB ONE (07:18)
== END 2021-06-03 08:15 | disposition home or self-care (01) ==
LOC: ERS 06:12
DX: S39.011A Strain of muscle, fascia and tendon of abdomen, initial encounter (principal); E11.9 Type 2 diabetes mellitus without complications; X50.3XXA Overexertion from repetitive movements, initial encounter; Y93.39 Activity, other involving climbing, rappelling and jumping off; Z79.82 Long term (current) use of aspirin; Z79.84 Long term (current) use of oral hypoglycemic drugs; Z79.899 Other long term (current) drug therapy
CPT/HCPCS: 99283

== ENCOUNTER 2022-03-18 05:14 | Emergency (ER) | payer MEDICARE ==
[2022-03-18 06:14] LABS: #Basophils 0.1 thou/uL (0.0-0.2); #Eosinphils 0.2 thou/uL (0.0-0.7); #Lymphocytes 2.4 thou/uL (1.20-3.40); #Monocytes 0.9 thou/uL (0.11-0.59); #Neutrophils 7.5 thou/uL (1.40-6.50); %Basophils 0.5 % (0.0-1.0); %Eosinophils 1.6 % (0.0-10.0); %Lymphocytes 21.6 % (21.0-51.0); %Monocytes 7.9 % (0.0-10.0); %Neutrophils 68.4 % (42.0-75.0); Mean Corpuscular HGB CONC 32.5 g/dL (32.0-36.0); Mean Corpuscular Hemoglobin 29.4 pg (27.0-31.0); Mean Corpuscular Volume 90.4 fl (78.0-98.0); Mean Platelet Volume 9.7 fL (7.4-10.4); Platelet Count 243 10x3/uL (130-400); RBC Distribution Width 12.3 % (11.5-14.5); Red Blood Cell (RBC) Count 4.41 mill/uL (4.70-6.10); White Blood Cell (WBC) Count 10.9 10x3/uL (4.8-10.8)
[2022-03-18 06:40] LABS: ALT (SGPT) 20 U/L (8-55); AST (SGOT) 17 U/L (5-34); Alkaline Phosphatase 45 U/L (40-110); Anion Gap 16 mmol/L (10-20); BUN (Urea Nitrogen) 17 mg/dL (8.4-25.7); Bilirubin, Total 0.5 mg/dL (0.2-1.2); Calc. Creatinine Clearance 0 mL/min (70-130); Calcium 9.2 mg/dL (7.8-10.44); Carbon Dioxide 23 mmol/L (22-29); Chloride 101 mmol/L (98-107); Estimated GFR 105; Globulin 3.3 g/dL (2.4-3.5); Glucose 306 mg/dL (70-105); Protein, Total 7.3 g/dL (6.0-8.3); Sodium 136 mmol/L (136-145)
[2022-03-18] MEDS ORDERED: Lidocaine 1% PF 5 ML VIAL ONE (07:34)
[2022-03-18] MEDS ORDERED: Clindamycin/D5W 900 mg/50 ml Premix Bag ONE (07:39)
[2022-03-18 08:07] LABS: Bilirubin Negative (Negative); Blood, Urine Negative (Negative); Clarity Clear (Clear); Glucose, Urine (Dipstick) Greater than 1000 mg/dL (Negative); Ketone, Urine Negative (Negative); Leukocyte Negative Leu/uL (Negative); Nitrite Negative (Negative); Protein, Urine (Dipstick) Negative (Neg-Trace); Urobilinogen Normal mg/dL (Less than 2); pH, Urine 5.5 (5.0-9.0)
[2022-03-18 08:10] LABS: Specific Gravity, Urine 1.061 (1.002-1.036)
[2022-03-18] MEDS ORDERED: Iopamidol-370 76% 500 ML 1 ML ONE (13:44)
== END 2022-03-18 08:20 | disposition home or self-care (01) ==
LOC: ERS 05:14
DX: L03.311 Cellulitis of abdominal wall (principal); L02.211 Cutaneous abscess of abdominal wall; E11.9 Type 2 diabetes mellitus without complications; Z79.84 Long term (current) use of oral hypoglycemic drugs
CPT/HCPCS: 10060; 36415; 74177; 80053; 81003; 83605; 85025; 87040; 87086; 96374; J3490; Q9967

== ENCOUNTER 2022-03-31 06:45 | Emergency (ER) | payer MEDICARE ==
[2022-03-31 08:34] LABS: #Eosinphils 0.1 thou/uL (0.0-0.7); #Lymphocytes 2.3 thou/uL (1.20-3.40); #Monocytes 0.8 thou/uL (0.11-0.59); #Neutrophils 8.2 thou/uL (1.40-6.50); %Basophils 0.2 % (0.0-1.0); %Eosinophils 0.7 % (0.0-10.0); %Lymphocytes 19.8 % (21.0-51.0); %Monocytes 7.3 % (0.0-10.0); Hemoglobin 14.7 g/dL (14.0-18.0); Mean Corpuscular HGB CONC 32.3 g/dL (32.0-36.0); Mean Corpuscular Hemoglobin 28.9 pg (27.0-31.0); Mean Corpuscular Volume 89.4 fl (78.0-98.0); Mean Platelet Volume 9.5 fL (7.4-10.4); Platelet Count 323 10x3/uL (130-400); RBC Distribution Width 12.2 % (11.5-14.5); Red Blood Cell (RBC) Count 5.08 mill/uL (4.70-6.10); White Blood Cell (WBC) Count 11.4 10x3/uL (4.8-10.8)
[2022-03-31 10:08] LABS: ALT (SGPT) 24 U/L (8-55); AST (SGOT) 23 U/L (5-34); Albumin 4.3 g/dL (3.5-5.0); Alkaline Phosphatase 51 U/L (40-110); Anion Gap 19 mmol/L (10-20); BUN (Urea Nitrogen) 19 mg/dL (8.4-25.7); Bilirubin, Total 0.6 mg/dL (0.2-1.2); Calc. Creatinine Clearance 0 mL/min (70-130); Calcium 9.8 mg/dL (7.8-10.44); Carbon Dioxide 20 mmol/L (22-29); Chloride 98 mmol/L (98-107); Estimated GFR 99; Globulin 4.1 g/dL (2.4-3.5); Glucose 303 mg/dL (70-105); Potassium 3.8 mmol/L (3.5-5.1); Protein, Total 8.4 g/dL (6.0-8.3); Sodium 133 mmol/L (136-145)
[2022-03-31] MEDS ORDERED: Lidocaine 1% w/Epinephrine 1:100K 20 ML VIAL ONE (10:30)
== END 2022-03-31 11:30 | disposition home or self-care (01) ==
LOC: ERS 06:45
DX: L03.311 Cellulitis of abdominal wall (principal); E11.9 Type 2 diabetes mellitus without complications; Z79.84 Long term (current) use of oral hypoglycemic drugs
CPT/HCPCS: 10060; 36415; 80053; 85025